=== PATIENT | female | born 1980 | race Caucasian/White ===

== ENCOUNTER → 2017-05-29 | Outpatient (CLI) | payer OTHER ==
--- NOTE | 2017-05-29 07:39 | US ---
EXAMINATION TYPE: US abdomen complete DATE OF EXAM: 05/29/2017 COMPARISON: CT dated 03/19/2014. CLINICAL HISTORY: R10.9 abdominal pain. left sided pain EXAM MEASUREMENTS: Liver Length: 14.9 cm Gallbladder Wall: 0.2 cm CBD: 0.5 cm Spleen: 10.2 cm Right Kidney: 11.7 x 3.3 x 4.7 cm Left Kidney: 10.9 x 4.7 x 4.7 cm Pancreas: obscured by overlying bowel gas Liver: wnl Gallbladder: wnl Evidence for sonographic Kirby's sign: no CBD: wnl Spleen: wnl Right Kidney: wnl Left Kidney: wnl Upper IVC: wnl Abd Aorta: wnl as seen The liver is homogenous. The intrahepatic portion of the IVC and proximal abdominal aorta are within normal limits. There is no evidence of cholelithiasis. Common bile duct is unremarkable. The spl een is unremarkable. Kidneys are symmetric and free of hydronephrosis. No renal lesions are seen. IMPRESSION: 1. Obscuration of the pancreas by overlying bowel gas, otherwise unremarkable abdominal ultrasound.
== END | disposition home or self-care (01) ==
LOC: RADUSWWP 06:58
PROVIDERS: ATTEND Pediatrics
DX: R10.9 Unspecified abdominal pain (principal)
CPT/HCPCS: 76700

== ENCOUNTER → 2020-09-16 | Outpatient (CLI) | payer OTHER ==
--- NOTE | 2020-09-16 11:26 | P.STRESS ---
- Stress Test Note Stress Test Results/Findings: Exam Performed: stress test Exam Date: 09/16/20 Reason for Exam: CHEST PAIN Height: 5 ft 7 in Weight: 81.8 kg Protocol: [place] Stage: 3 Duration of Exercise: 9:30 MINUTES Resting Heart Rate: 80 Resting Blood Pressure: 112/80 Maximum Achieved Heart Rate: 184 Maximum Achieved Blood Pressure: 158/66 85% PMHR: 151 100% PMHR: 178 METS: 11.1 Technologist Comment: Stress Test Results/Findings: Baseline heart rate 80 beats a minute, Baseline blood pressure 112/80 mmHg Baseline twelve-lead EKG shows sinus rhythm normal ST segments narrow QRS normal [place] Patient exercised on a [place] protocol for 9 minutes achieving a peak heart rate of 184 beats a minute. She did complain of chest discomfort at peak exercise There was no evidence for ischemia no ST segment abnormalities noted No arrhythmias noted At recovery EKG was normal Impression Good exercise capacity, adequate workload achieved on a [place] protocol No ECG evidence for ischemia
--- NOTE | 2020-09-17 09:15 | EST ---
Stress Test Results/Findings: Exam Performed: stress test Exam Date: 09/16/20 Reason for Exam: CHEST PAIN Height: 5 ft 7 in Weight: 81.8 kg Protocol: [place] Stage: 3 Duration of Exercise: 9:30 MINUTES Resting Heart Rate: 80 Resting Blood Pressure: 112/80 Maximum Achieved Heart Rate: 184 Maximum Achieved Blood Pressure: 158/66 85% PMHR: 151 100% PMHR: 178 METS: 11.1 Technologist Comment: Stress Test Results/Findings: Baseline heart rate 80 beats a minute, Baseline blood pressure 112/80 mmHg Baseline twelve-lead EKG shows sinus rhythm normal ST segments narrow QRS normal [place] Patient exercised on a [place] protocol for 9 minutes achieving a peak heart rate of 184 beats a minute. She did complain of chest discomfort at peak exercise There was no evidence for ischemia no ST segment abnormalities noted No arrhythmias noted At recovery EKG was normal Impression Good exercise capacity, adequate workload achieved on a [place] protocol No ECG evidence for ischemia MTDD
== END | disposition home or self-care (01) ==
LOC: RADNMMAIN 08:41
PROVIDERS: ATTEND Family Medicine
DX: R07.9 Chest pain, unspecified (principal); R55 Syncope and collapse
CPT/HCPCS: 93017

== ENCOUNTER → 2020-11-19 | Outpatient (CLI) | payer OTHER ==
--- NOTE | 2020-11-19 10:45 | CT ---
EXAMINATION TYPE: CT angio chest DATE OF EXAM: 11/19/2020 COMPARISON: None HISTORY: 40-year-old female, R55, syncope, Shortness of breath, trouble breathing, COVID (nov) TECHNIQUE: Contiguous axial scanning of the chest performed with IV Contrast, patient injected with 1 00 mL of Isovue 370. Coronal/sagittal MIP reconstructions performed. CT DLP: 419 mGycm Automated exposure control for dose reduction was used. FINDINGS: Heart normal size without pericardial effusion. No flattening of the interventricular septum reflux o f contrast into the hepatic veins. Aorta normal caliber with conventional branching anatomy. Borderline size 1.0 cm lower left paratracheal lymph node. Otherwise, no thoracic lymphadenopathy by CT size criteria. Satisfactory opacification of the pulmonary arterial system without evidence for pulmonary embolus. The lungs show mild to moderate bronchial wall thickening without consolidation or pleural effusion. Small 4 mm left perihilar pulmonary nodule at the mid lung level, axial image 54. Visualized upper abdomen shows no gross abnormality. Bones: Mild to moderate degenerative disc disease anteriorly in the mid thoracic spine. IMPRESSION: 1. MILD TO MODERATE BRONCHIAL WALL THICKENING COULD REFLECT BRONCHITIS OR CHRONIC ASTHMA. NO FOCAL IN FILTRATE. 2. A 4 MM LEFT MID LUNG PULMONARY NODULE IS NONSPECIFIC. 12 MONTH FOLLOW-UP TO REASSESS. A BORDERLINE SIZED, LIKELY REACTIVE, 1.0 CM LOWER LEFT PARATRACHEAL LYMPH NODE CAN ALSO BE REASSESSED AT THAT HELLEN E. 3. NO EVIDENCE FOR PULMONARY EMBOLUS.
== END ==
LOC: RADCTMAIN 07:47
PROVIDERS: ATTEND Internal Medicine
DX: R91.1 Solitary pulmonary nodule (principal); R55 Syncope and collapse
CPT/HCPCS: 71275; Q9967

== ENCOUNTER → 2021-06-17 | Outpatient (CLI) | payer OTHER ==
--- NOTE | 2021-06-18 07:05 | CT ---
EXAMINATION TYPE: CT abdomen pelvis w con DATE OF EXAM: 06/17/2021 HISTORY: Left lower quadrant pain CT DLP: 1107.7mGycm Automated Exposure Control for Dose Reduction was Utilized. CONTRAST: CT scan of the abdomen and pelvis is performed with IV Contrast, patient injected with 100 mL of Isov ue 300. COMPARISON: CT abdomen and pelvis March 19, 2014 FINDINGS: LUNG BASES: No significant abnormality is appreciated. LIVER/GB: No significant abnormality is appreciated. PANCREAS: No significant abnormality is seen. SPLEEN: No significant abnormality is seen. ADRENALS: No significant abnormality is seen. KIDNEYS: Symmetric corticomedullary uptake and excretion without hydronephrosis seen bilaterally. Hoang dder not greatly distended with mild concentric wall thickening. Correlate clinically to exclude acut e bladder infection. BOWEL: The oral contrast reaches the level of the right colon. No suspicious small or large bowel dil atation. Normal-appearing appendix medial aspect of the cecum. Occasional distal colonic diverticula. No CT evidence for acute diverticulitis. UTERUS/ADNEXA: Uterus surgically absent or markedly atrophic similar to prior. Remnant normal size le ft ovary axial image 72 redemonstrated with 1.6 cm low dense lesion favoring prominent follicle or si mple small ovarian cyst. Remnant right ovary not as well seen likely present and normal in size on ax ial image 74. LYMPH NODES: No greater than 1cm abdominal or pelvic lymph nodes are appreciated. OSSEOUS STRUCTURES: No significant abnormality is seen. OTHER: No significant additional abnormality is seen. IMPRESSION: Mild bladder wall thickening, correlate clinically and with urine lab values to exclude a cute cystitis. A few distal colonic diverticula without CT evidence for acute diverticulitis. No jaime l obstruction. No new or acute findings otherwise seen.
== END | disposition home or self-care (01) ==
LOC: RADCTMAIN 17:01
PROVIDERS: ATTEND Family Medicine
DX: R10.32 Left lower quadrant pain (principal); R19.7 Diarrhea, unspecified
CPT/HCPCS: 74177; Q9967